=== PATIENT | female | born 1945 | race Caucasian/White ===

== ENCOUNTER 2016-10-31 10:02 | Emergency (ER) | payer MEDICARE ==
[2016-10-31 10:11] VITALS: BP 117/68
[2016-10-31] MEDS ORDERED: Ondansetron ODT TAB* 4 MG PO ONE (10:24)
--- NOTE | 2016-10-31 10:39 | UC ---
Gagan Jones Angela, scribed for Jose David Don MD on 10/31/16 at 1027 . Complaint Female HPI - HPI Summary HPI Summary: This pt is a 71 y/o female presenting to [facility] c/o dysuria and urinary frequency since yesterday morning. Last night and today she reports hematuria. Pt endorses fatigue, nausea, right flank pain and bladder/lower abd pain. She reports normal PO intake. Pt denies fever, chills, diarrhea, vomiting. She notes a PMHx: ovarian CA (in 2014) which makes urinating difficult at baseline due to removal of half her bladder. Pt states these symptoms are worse than baseline. She reports getting frequent UTIs prior to her dx of ovarian CA. Pt is currently on Xarelto (for atrial fibrillation) and Ventolin. - History Of Current Complaint Chief Complaint: UCGU Stated Complaint: UTI COMPLAINT Time Seen by Provider: 10/31/16 10:12 Hx Obtained From: Patient Onset/Duration: Lasting Days Timing: Constant Associated Signs And Symptoms: Positive: Back Pain - mild right-sided. Negative : Fever, Nausea, Vomiting(# Of Episodes =) - Allergies/Home Medications Allergies/Adverse Reactions: Allergies Allergy/AdvReac Type Severity Reaction Status Date / Time Cefaclor [From Ceclor] Allergy Hives Verified 09/12/15 11:49 Celecoxib [From Celebrex] Allergy Hives Verified 09/12/15 11:49 Fluticasone Allergy Bleeding Verified 09/12/15 11:49 BECLOMETHASONE Allergy Intermediate Pain Uncoded 09/12/15 11:50 TAXOL Allergy Intermediate Shakes Uncoded 09/12/15 11:51 Home Medications: Home Medications Albuterol HFA INHALER* [Ventolin HFA Inhaler*] 10/31/16 [History] Carvedilol TAB* [Coreg TAB*] 1 tab PO BID 10/31/16 [History Confirmed 10/31/16] Fluticasone Furoate (Inhalatio [Arnuity Ellipta] 200 mcg 10/31/16 [History] PMH/Surg Hx/FS Hx/Imm Hx Cardiovascular History: Hypertension, Atrial Fibrillation Respiratory History: Asthma Other Cancer History: Ovarian CA - Surgical History Surgical History: Yes Surgery Procedure, Year, and Place: partial hysterectomy,tonsilectomy, jordan, biopsy chest for sarcoidosis; bladder. 06/2014 [facility] REMOVED 2 OVARY-TUMORS ATTACHED TO OVARY-PART OF INTESTINE-PART OF BLADDER-PART OF LIVER-PART OF RIGHT KIDNEY-STOMACH LINING(DEBULKING); 2 CHEMO PORTS-THEN REMOVED; LEFT ELBOW REPAIR - Social History Alcohol Use: None Substance Use Type: None Smoking Status (MU): Never Smoked Tobacco - Immunization History Most Recent Influenza Vaccination: fall 2013 Most Recent Pneumonia Vaccination: due Review of Systems Constitutional: Other - POSITIVE: fatigue. NEGATIVE: fever, chills Skin: Negative Eyes: Negative Respiratory: Negative Gastrointestinal: Abdominal Pain - lower/bladder, Nausea, Other - NEGATIVE: diarrhea, vomiting Genitourinary: Dysuria, Hematuria, Frequency Psychological: Negative All Other Systems Reviewed And Are Negative: Yes Physical Exam Triage Information Reviewed: Yes Vital Signs: Initial Vital Signs Temp 97.9 F 10/31/16 10:08 Pulse 80 10/31/16 10:08 Resp 16 10/31/16 10:08 BP 117/68 10/31/16 10:08 Pulse Ox 96 10/31/16 10:08 Vital Signs Reviewed: Yes - Additional Comments General: well-appearing, no pain distress Skin: warm, color reflects adequate perfusion, dry Head: normal Eyes: EOMI, GUSTAVO ENT: normal Neck: supple, nontender Respiratory: CTA, breath sounds present Cardiovascular: RRR Abdomen: soft, nontender to palpation. Bowel: positive bowel sounds Musculoskeletal: normal, strength/ROM intact.Nontender to flank percussion. Neurological: normal, sensory/motor intact, A&O x3 Psychological: affect/mood appropriate Complaint Female Dx - Course Course Of Treatment: This pt is a 71 y/o female presenting to [facility] c/o dysuria and urinary frequency since yesterday morning. Last night and today she reports hematuria. Pt endorses fatigue, nausea, right flank pain and bladder/lower abd pain. She reports normal PO intake. Pt denies fever, chills, diarrhea, vomiting. She notes a PMHx: ovarian CA (in 2014) which makes urinating difficult at baseline due to removal of half her bladder. Pt states these symptoms are worse than baseline. She reports getting frequent UTIs prior to her dx of ovarian CA. Pt is currently on Xarelto (for atrial fibrillation) and Ventolin. Medications were reviewed. MEDICATIONS REVIEWED - Differential Dx/Diagnosis Provider Diagnoses: UTI Discharge - Discharge Plan Condition: Stable Disposition: HOME Prescriptions: Phenazopyridine 200 mg (NF) [Pyridium 200 MG tab *] 200 mg PO TID PRN #10 tab PRN Reason: Pain Sulfamethox/Trimethoprim DS* [Bactrim DS 800/160 TAB*] 1 tab PO BID #20 tab Patient Education Materials: Urinary Tract Infection in Women (ED) Referrals: Shannon White MD [Primary Care Provider] - Additional Instructions: FOLLOW UP WITH YOUR DOCTOR. GET RECHECKED FOR ANY WORSENING OF YOUR CONDITION; PAIN, FEVER, YOU FEEL ILL OR QUESTIONS OR CONCERNS. The documentation as recorded by the Gagan vaughan Angela accurately reflects the service I personally performed and the decisions made by me, Jose David Don MD.
== END 2016-10-31 10:49 | disposition home or self-care (01) ==
LOC: UCEAST 10:02
DX: N39.0 Urinary tract infection, site not specified (principal); J45.909 Unspecified asthma, uncomplicated; I48.91 Unspecified atrial fibrillation; Z79.01 Long term (current) use of anticoagulants; Z85.43 Personal history of malignant neoplasm of ovary
CPT/HCPCS: 81003; 87077; 87086; 87186; 99212; A9270-GY; G0463

== ENCOUNTER 2016-11-26 11:18 | Emergency (ER) | payer MEDICARE, OTHER ==
[2016-11-26 12:19] VITALS: BP 131/60
--- NOTE | 2016-11-26 12:31 | UC ---
Complaint Female HPI - HPI Summary HPI Summary: pain and buring, urgency, frequency with urination for 2 days, recently on Bactrim for UTI, did not finish entire dose due to hives - History Of Current Complaint Chief Complaint: UCGU Stated Complaint: URINARY COMPLAINT Time Seen by Provider: 11/26/16 12:19 Hx Obtained From: Patient ?: No Onset/Duration: Sudden Onset, Lasting Days - 2, Still Present Timing: Constant Severity Initially: Moderate Severity Currently: Moderate Character: Burning Aggravating Factor(s): Urination Alleviating Factor(s): Nothing Associated Signs And Symptoms: Negative: Fever, Back Pain, Nausea - Allergies/Home Medications Allergies/Adverse Reactions: Allergies Allergy/AdvReac Type Severity Reaction Status Date / Time Sulfamethoxazole Allergy Severe Rash Verified 11/26/16 12:11 w/Trimethoprim [From Bactrim] Cefaclor [From Ceclor] Allergy Hives Verified 11/26/16 12:11 Celecoxib [From Celebrex] Allergy Hives Verified 11/26/16 12:11 Fluticasone Allergy Bleeding Verified 11/26/16 12:11 BECLOMETHASONE Allergy Intermediate Pain Uncoded 11/26/16 12:11 TAXOL Allergy Intermediate Shakes Uncoded 11/26/16 12:11 PMH/Surg Hx/FS Hx/Imm Hx Endocrine History: Hypothyroidism Cardiovascular History: Cardiac Disease, Hypertension Respiratory History: Asthma - Surgical History Surgical History: Yes Surgery Procedure, Year, and Place: partial hysterectomy,tonsilectomy, jordan, biopsy chest for sarcoidosis; bladder. 06/2014 [facility] REMOVED 2 OVARY-TUMORS ATTACHED TO OVARY-PART OF INTESTINE-PART OF BLADDER-PART OF LIVER-PART OF RIGHT KIDNEY-STOMACH LINING(DEBULKING); 2 CHEMO PORTS-THEN REMOVED; LEFT ELBOW REPAIR - Family History Known Family History: Positive: None - Social History Occupation: Retired Lives: With Family Alcohol Use: None Substance Use Type: None Smoking Status (MU): Never Smoked Tobacco - Immunization History Most Recent Influenza Vaccination: NONE 2017 Most Recent Pneumonia Vaccination: UNKNOWN Review of Systems Constitutional: Negative Skin: Negative Eyes: Negative ENT: Negative Respiratory: Negative Cardiovascular: Negative Gastrointestinal: Negative Genitourinary: Dysuria, Frequency, Urgency Motor: Negative Neurovascular: Negative Musculoskeletal: Negative Neurological: Negative Psychological: Negative Is Patient Immunocompromised?: No All Other Systems Reviewed And Are Negative: Yes Physical Exam Triage Information Reviewed: Yes Appearance: Well-Appearing, Well-Nourished, Pain Distress - mild Vital Signs: Initial Vital Signs Temp 97.1 F 11/26/16 12:12 Pulse 71 11/26/16 12:12 Resp 18 11/26/16 12:12 BP 131/60 11/26/16 12:12 Pulse Ox 96 11/26/16 12:12 Vital Signs Reviewed: Yes Eye Exam: Normal Eyes: Positive: Conjunctiva Clear ENT Exam: Normal ENT: Positive: Normal ENT inspection, Hearing grossly normal. Negative: Nasal congestion, Nasal drainage, Trismus, Muffled/hoarse voice Dental Exam: Normal Neck exam: Normal Neck: Positive: Supple, Nontender Respiratory Exam: Normal Respiratory: Positive: Chest non-tender, No respiratory distress, No accessory muscle use Cardiovascular Exam: Normal Cardiovascular: Positive: RRR, Pulses Normal, Brisk Capillary Refill Abdominal Exam: Normal Abdomen Description: Positive: Nontender, No Organomegaly, Soft. Negative: CVA Tenderness (R), CVA Tenderness (L) Bowel Sounds: Positive: Present Musculoskeletal Exam: Normal Musculoskeletal: Positive: Strength Intact, ROM Intact, No Edema Neurological Exam: Normal Neurological: Positive: Alert, Muscle Tone Normal Psychological Exam: Normal Skin Exam: Normal Diagnostics - Laboratory Diagnostic Studies Completed/Ordered: +3 blood, leukoesterace +nitrite, + protien Complaint Female Dx - Course Course Of Treatment: Culture urine, pyridium, cipro, follow with pcp - Differential Dx/Diagnosis Differential Diagnosis/HQI/PQRI: Renal Colic, Ureteral Stone, Urinary Tract Infection Provider Diagnoses: UTI Discharge - Discharge Plan Condition: Stable Disposition: HOME Prescriptions: Ciprofloxacin TAB* [Cipro 250 MG Tab*] 250 mg PO BID #6 tab Phenazopyridine TAB* [Pyridium 100 mg TAB*] 100 mg PO TID PRN #4 tab PRN Reason: urinary burning Patient Education Materials: Phenazopyridine (By mouth), Urinary Tract Infection in Women (ED) Referrals: Shannon White MD [Primary Care Provider] - 1 Week
[2016-11-26] MEDS ORDERED: Phenazopyridine TAB* 100 MG PO ONE (12:35)
== END 2016-11-26 12:55 | disposition home or self-care (01) ==
LOC: UCCORT 11:18
DX: N39.0 Urinary tract infection, site not specified (principal); B96.1 Klebsiella pneumoniae [K. pneumoniae] as the cause of diseases classified elsewhere; I10 Essential (primary) hypertension; J45.909 Unspecified asthma, uncomplicated; I25.10 Atherosclerotic heart disease of native coronary artery without angina pectoris; E03.9 Hypothyroidism, unspecified; Z88.2 Allergy status to sulfonamides
CPT/HCPCS: 81003; 87077; 87086; 87186; 99212; A9270-GY; G0463

== ENCOUNTER → 2017-02-24 07:15 | Day surgery (SDC) | payer MEDICARE ==
[~2017-02-24 07:15] MED LIST: Buffered Lidocaine 0.9% SYRIN* 5 ML/SYR SYRINGE INTRADERM ONE; Buffered Lidocaine 0.9% SYRIN* 5 ML/SYR SYRINGE ONE; Bupivacaine 0.25% SDV* 30 ML ONE; Clindamycin 900 MG IVPREMIX(* 900 MG/50 ML SDV IV ONE; Lidocaine 1% INJ* 10 MG/ML 30 ML SDV ONE; Lidocaine 1.5% EPI 1:200,000* 30 ML SDV ONE; Midazolam* 1 MG/ML 2 ML VIAL (2 MG) ONE; Propofol* 10 MG/ML 20 ML BTL IV PUSH ONE; fentaNYL* 50 MCG/ML 2 ML VIAL (100 MCG VIAL) ONE
--- NOTE | 2017-02-24 10:58 | RAD ---
HISTORY: Right-sided PowerPort placement COMPARISONS: January 02, 2017 VIEWS: 1: frontal portable view of the chest at 10:00 AM FINDINGS: LINES AND TUBES: A right-sided chest port is noted with the tip overlying the cavoatrial junction. CARDIOMEDIASTINAL SILHOUETTE: The cardiomediastinal silhouette is normal for portable technique. PLEURA: The costophrenic angles are sharp. No pleural abnormalities are noted. LUNG PARENCHYMA: There is minimal perihilar alveolar opacification of the right lung ABDOMEN: The upper abdomen is clear. There is no subphrenic gas. BONES AND SOFT TISSUES: No bone or soft tissue abnormalities are noted. IMPRESSION: LINES AND TUBES ABOVE. MINIMAL RIGHT PERIHILAR ATELECTASIS VERSUS CONSOLIDATION
--- NOTE | 2017-02-24 11:01 | RAD ---
INDICATION: R port placement COMPARISONS: None relevant TECHNIQUE: Fluoroscopy was provided for a vascular access procedure. Total fluoroscopy time is: 9.2 seconds FINDINGS: Spot images demonstrate a right-sided chest port from a subclavian approach. IMPRESSION: FLUOROSCOPY WAS PROVIDED FOR A VASCULAR ACCESS PROCEDURE CPT II Codes: 6045F
[2017-02-24 11:31] VITALS: BP 122/66
--- NOTE | 2017-02-25 00:17 | OP ---
CC: Dr. Miguel Angel Virgen; Dr. Shannon White; Dr. Stephie Gilmore OPERATIVE REPORT: DATE OF OPERATION: 02/24/17 DATE OF : 45 SURGEON: Miguel Angel Virgen MD TAX PROFESSIONAL: None. ANESTHESIOLOGIST: Fernando Thomson DO ANESTHESIA: LMAC anesthesia. PRE-OP DIAGNOSIS: Ovarian carcinoma. POST-OP DIAGNOSIS: Ovarian carcinoma. OPERATIVE PROCEDURE: Placement of right subclavian 8-Maltese PowerPort. DESCRIPTION OF PROCEDURE: The patient was supine on the operative table. After adequate intravenous sedation, compression stockings, Yandy Hugger warmer, and intravenous antibiotics, the right neck and chest region were prepped with antiseptic, draped in a sterile fashion. Local infiltrative anesthes ia was administered and approximately 3-cm right subclavian incision was created. Venipuncture was ca rried out. Guidewire was passed under fluoroscopic guidance. Catheter was passed through the peel-aw ay introducer and measured and cut to 22 cm, attached to the port, which was sutured in the pocket wi th 2-0 Prolene. The pocket was closed with 3-0 and 5-0 Vicryl followed by Steri-Strips. The port wa s accessed. There was good blood return. It was flushed with saline and heparinized solution and a Tegaderm was placed. She tolerated the procedure well, was discharged with instructions and will fol low up in the office as needed. She has chemotherapy tomorrow and understands how she has to protect the port until they can use the access at chemotherapy. [id number]/[facility] #: [id number]
== END | disposition home or self-care (01) ==
LOC: OR 07:15
PROVIDERS: ATTEND Surgery
DX: C56.2 Malignant neoplasm of left ovary (principal); I10 Essential (primary) hypertension; I48.0 Paroxysmal atrial fibrillation; Z79.01 Long term (current) use of anticoagulants; I71.2 Thoracic aortic aneurysm, without rupture; J45.909 Unspecified asthma, uncomplicated; R91.8 Other nonspecific abnormal finding of lung field; Z88.1 Allergy status to other antibiotic agents; Z88.6 Allergy status to analgesic agent; Z88.8 Allergy status to other drugs, medicaments and biological substances; I08.0 Rheumatic disorders of both mitral and aortic valves; D86.9 Sarcoidosis, unspecified; E11.9 Type 2 diabetes mellitus without complications
CPT/HCPCS: 71010; C1788; J1642; J2250; J2704; J3010

== ENCOUNTER 2017-06-03 10:13 | Day surgery (SDC) | payer MEDICARE ==
--- NOTE | 2017-05-31 23:27 | HP ---
CC: Dr. Stephie Gilmore * ADMITTING HISTORY AND PHYSICAL: DATE OF ADMISSION: 06/03/17 ADMITTING DIAGNOSES: 1. Advanced ovarian carcinoma. 2. Bilateral hydronephrosis. PLANNED PROCEDURE: Bilateral retrograde and bilateral ureteral stent change. SURGEON: Dr. Padilla. ADMITTING HISTORY AND PHYSICAL: Megan Ramos is a 71-year-old lady with advanced ovarian carcinoma, who had been evaluated in December of 2016 for severe bilateral hydronephrosis. At that time, she had undergone bilateral stent insertion with resolution of the hydronephrosis. She was noted at that time to have had a right ureteral reimplant and I was able to position an 8.5 Danish 26 cm silicone stent into the right ureter and an 8.5 Danish 28 cm silicone stent into the left ureter. PAST MEDICAL HISTORY: Significant for: 1. Advanced ovarian carcinoma. 2. Atrial fibrillation. 3. Hypothyroidism. MEDICATIONS: On admission: 1. Carvedilol 6.25 mg twice a day. 2. Cholecalciferol 2000 units daily. 3. K-Ani 20 mEq daily. 4. Levothyroxine 88 mcg daily. 5. Marinol 1 capsule 3 times a day. 6. Prednisone 10 mg daily. 7. Singulair 10 mg daily. 8. Xarelto 20 mg daily. ALLERGIES AND INTOLERANCES: BECLOMETHASONE, CECLOR, CELEBREX, TAXOL, SULFA, and TEGADERM. PHYSICAL EXAMINATION GENERAL: Reveals a pleasant elderly lady. VITAL SIGNS: Blood pressure is 120/80, pulse 76 per minute, oxygen saturation 98% on room air. LUNGS: Clear bilaterally. CARDIOVASCULAR: S1, S2. No murmurs. ABDOMEN: Soft with mild bilateral flank tenderness. IMPRESSION: A 71-year-old lady with advanced ovarian carcinoma causing bilateral hydronephrosis and also status post reimplant of the right ureter. PLAN/RECOMMENDATIONS: Bilateral retrogrades and bilateral ureteral stent change. [id number]/[facility] #: [id number] [facility]
[~2017-06-03 10:13] MED LIST changes: -Buffered Lidocaine 0.9% SYRIN* 5 ML/SYR SYRINGE ONE; -Bupivacaine 0.25% SDV* 30 ML ONE; -Clindamycin 900 MG IVPREMIX(* 900 MG/50 ML SDV IV ONE; +Dexamethasone IV* 4 MG/ML 1 ML (4 MG) IV SLOW PU ONE; +Famotidine IV* 10 MG/ML 2 ML (20 mg) IV ONE; +Gentamicin ADULT (*) 120 MG in NS 0.9% 100 ML* 100 ML IVPB ONE; -Lidocaine 1% INJ* 10 MG/ML 30 ML SDV ONE; -Lidocaine 1.5% EPI 1:200,000* 30 ML SDV ONE; -Midazolam* 1 MG/ML 2 ML VIAL (2 MG) ONE; -Propofol* 10 MG/ML 20 ML BTL IV PUSH ONE; -fentaNYL* 50 MCG/ML 2 ML VIAL (100 MCG VIAL) ONE
[2017-06-03] MEDS ORDERED: Famotidine IV* 10 MG/ML 2 ML (20 mg) ONE (11:26)
[2017-06-03] MEDS ORDERED: Levofloxacin 500 MG IVPREMIX(* 500 MG/100 ML BAG IVPB ONE (11:26)
[2017-06-03] MEDS ORDERED: Dexamethasone IV* 4 MG/ML 1 ML (4 MG) ONE (11:26)
[2017-06-03] MEDS ORDERED: Midazolam* 1 MG/ML 5 ML VIAL (5 MG) ONE (12:11)
[2017-06-03] MEDS ORDERED: Iohexol 180 (CONTRAST) 10 ML SDV IV ONE ×2 (12:25→13:06)
[2017-06-03] MEDS ORDERED: Ondansetron INJ* 2 MG/ML VIAL IV PRN (12:35)
[2017-06-03] MEDS ORDERED: fentaNYL* 50 MCG/ML 2 ML VIAL (100 MCG VIAL) IV PRN (12:35)
[2017-06-03] MEDS ORDERED: Naloxone* 0.4 MG/ML 1 ML VIAL IV PRN (12:35)
[2017-06-03] MEDS ORDERED: oxyCODONE/Acetamin 5/325 MG* TAB PO PRN (12:35)
[2017-06-03] MEDS ORDERED: DiMENhydriNATE IV* 50 MG/ML VIAL IV PUSH PRN (12:35)
[2017-06-03] MEDS ORDERED: Chloroprocaine 3%* 20 ML VIAL ONE (12:41)
[2017-06-03] MEDS ORDERED: fentaNYL* 50 MCG/ML 2 ML VIAL (100 MCG VIAL) ONE (12:41)
[2017-06-03] MEDS ORDERED: Propofol* 10 MG/ML 20 ML BTL IV PUSH ONE (12:57)
[2017-06-03] MEDS ORDERED: Ondansetron INJ* 2 MG/ML VIAL ONE (12:57)
--- NOTE | 2017-06-03 13:49 | RAD ---
INDICATION: Stent exchange COMPARISONS: CT dated May 10, 2014 TECHNIQUE: Fluoroscopy was provided for a retrograde pyelogram and stent placement. Total fluoroscopy time is: 7 seconds FINDINGS: Spot images demonstrate contrast within the renal collecting systems bilaterally with bilateral ureteral stents. IMPRESSION: FLUOROSCOPY WAS PROVIDED FOR A RETROGRADE PYELOGRAM AND STENT PLACEMENT CPT II Codes: 6045F
[2017-06-03 14:57] VITALS: BP 134/63
--- NOTE | 2017-06-04 14:06 | OP ---
CC: Dr. Shannon White; Stephie Gilmore MD * DATE OF OPERATION: 06/03/17 - [facility] DATE OF : 45 SURGEON: Armand Padilla MD ANESTHESIOLOGIST: Dr. Melton. ANESTHESIA: Spinal. PRE-OP DIAGNOSIS: Bilateral hydronephrosis. POST-OP DIAGNOSIS: Bilateral hydronephrosis. OPERATIVE PROCEDURE: Cystoscopy, bilateral retrograde and bilateral ureteral stent change. COMPLICATIONS: None. STENT USED: A 8.5-Mauritian 28-cm silicone stent, left ureter and 8.5-Mauritian 26- cm silicone stent, right ureter. POSTOPERATIVE CONDITION: Stable. INDICATIONS: Megan Ramos is a 71-year-old lady with advanced pelvic malignancy causing bilateral hydronephrosis. She has been managed with indwelling bilateral stents and is now being brought in for stent change. DESCRIPTION OF PROCEDURE: After induction of spinal anesthesia, the patient was placed in dorsal lithotomy position. Sequential compression devices were in place and functioning. Initial cystoscopy revealed the stent exiting from the left ureteral orifice and also from the re-implanted right-sided orifice. Both the stents were removed. Left retrograde pyelogram was performed, which revealed fullness of the left collecting system. A new 8.5-Mauritian 28 cm silicone stent was positioned under fluoroscopy in the left ureter. Next, attention was directed to the right side. The right ureter had been reimplanted and the reimplanted orifice was in the posterior wall high up on the right side. This was located and a retrograde pyelogram revealed fullness of the right collecting system. A 8.5-Mauritian 26 cm silicone stent was introduced into the right ureter and positioned under fluoroscopy with good proximal and distal positioning obtained. The bladder was emptied. The patient tolerated the procedure satisfactorily and was transferred back to the recovery area in stable condition. [id number]/[facility] #: [id number] [facility]
== END 2017-06-03 15:56 | disposition home or self-care (01) ==
LOC: OR 10:13
PROVIDERS: ATTEND Urology
DX: N13.1 Hydronephrosis with ureteral stricture, not elsewhere classified (principal); C56.9 Malignant neoplasm of unspecified ovary; I48.91 Unspecified atrial fibrillation; E03.9 Hypothyroidism, unspecified; Z79.01 Long term (current) use of anticoagulants
CPT/HCPCS: 74420; C1876; J1100; J1580; J1956; J2250; J2400; J2405; J2704; J3010

== ENCOUNTER 2017-06-30 01:48 | Emergency (ER) | payer MEDICARE ==
[2017-06-30] MEDS ORDERED: Ondansetron INJ* 2 MG/ML VIAL IV ONE (03:08)
[2017-06-30] MEDS ORDERED: NS 0.9% 1000 ML* 1,000 ML IV ONE (03:08)
[2017-06-30] MEDS ORDERED: HYDROmorphone INJ* 2 MG/ML CARPUJECT SYRINGE IV SLOW PU ONE (03:08)
[2017-06-30 03:37] LABS: Hematocrit 25 % (35-47); Hemoglobin 8.3 g/dl (12.0-16.0); Mean Corpuscular HGB Conc 34 g/dl (31-36); Mean Corpuscular Hemoglobin 35 pg (27-31); Mean Corpuscular Volume 103 fL (80-97); Mean Platelet Volume 7.4 um3 (7.4-10.4); Platelet Count 146 10^3/ul (150-450); Red Blood Count 2.41 10^6/ul (4.0-5.4); Red Cell Distribution Width 21 % (10.5-15); White Blood Count 1.7 10^3/ul (3.5-10.8)
[2017-06-30 03:45] LABS: INR 1.65 (0.77-1.02); Urine Appearance Cloudy; Urine Blood 2+ (Negative); Urine Color Yellow; Urine Ketones Negative (Negative); Urine Protein 2+(100 mg/dL) (Negative); Urine Specific Gravity 1.009 (1.010-1.030); Urine Urobilinogen Negative (Negative)
[2017-06-30 03:55] LABS: EGFR Non-African American 60.9 (>60)
[2017-06-30] MEDS ORDERED: DOXYcycline IV* 100 MG in NS 0.9% 250 ML* 250 ML IVPB ONE (04:10)
[2017-06-30 04:31] LABS: ABS Basophils 0 10^3/ul (0-0.2); ABS Eosinophils 0 10^3/ul (0-0.6); ABS Lymphocytes 0.7 10^3/ul (1.0-4.8); ABS Monocytes 0.6 10^3/ul (0-0.8); ABS Neutrophils 0.4 10^3/ul (1.5-7.7); ABS Nucleated RBC 0 10^3/ul; Eosinophil % 1.3 % (0-6); Lymphocyte % 41.2 % (25-47); Nucleated Red Blood Cells % 0.5
--- NOTE | 2017-06-30 06:39 | ED ---
Wilder Jones Gabriel, scribed for Estevan Perez MD on 06/30/17 at 0303 . GI/ HPI - HPI Summary HPI Summary: This patient is a 71 year old F presenting to [facility] with a chief complaint of right flank pain since 1200 tonight. The patient rates the pain 10/10 in severity. Patient reports dysuria and nausea. Pt denies fever, CP, SOB, and trouble breathing. Pt has stents in her kidney to allow them to drain properly. They were not due to scar tissue s/p cancer surgery. She has stage 4 ovarian cancer. - History of Current Complaint Chief Complaint: EDFlankPain Time Seen by Provider: 06/30/17 02:53 Stated Complaint: FLANK PAIN Hx Obtained From: Patient Onset/Duration: Started Hours Ago, Still Present Timing: Constant Severity: Moderate Current Severity: Moderate Pain Intensity: 10 Location of Pain: Flank Associated Signs and Symptoms: Positive: Other: - dysuria - Additional Pertinent History Primary Care Physician: KAM - Allergy/Home Medications Allergies/Adverse Reactions: Allergies Allergy/AdvReac Type Severity Reaction Status Date / Time Adhesive Tape Allergy Intermediate Rash Verified 06/30/17 01:51 [Tegaderm Dressing] cefaclor Allergy Intermediate Hives Verified 06/30/17 01:51 celecoxib Allergy Intermediate Hives Verified 06/30/17 01:51 sulfamethoxazole Allergy Intermediate Rash Verified 06/30/17 01:51 [From Bactrim] trimethoprim [From Bactrim] Allergy Intermediate Rash Verified 06/30/17 01:51 beclomethasone AdvReac Severe Difficulty Verified 06/30/17 01:51 Swallowing paclitaxel AdvReac Shakes Verified 06/30/17 01:51 TAXOL AdvReac Mild Shakes Uncoded 06/30/17 01:51 PMH/Surg Hx/FS Hx/Imm Hx Endocrine/Hematology History: Reports: Hx Thyroid Disease Denies: Hx Diabetes, Hx Systemic Lupus Erythematosus Cardiovascular History: Reports: Hx Angina, Hx Hypertension, 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, Other Cardiovascular Problems/Disorders - a- fib, aneurysm thoracic aorta Denies: Hx Congestive Heart Failure, Hx Pacemaker/ICD Respiratory History: Reports: Hx Asthma, Hx Pulmonary Embolism - 2004, Other Respiratory Problems/Disorders - reports in remission - sarcoidosis GI History: Reports: Other GI Disorders - part of liver removed 2014 Denies: Hx Gall Bladder Disease - gallbladder removed, Hx Ulcer History: Reports: Hx Renal Disease, Other Problems/Disorders - scar tissue from surgery, has stents currently, freq UTI's Denies: Hx Dialysis Musculoskeletal History: Reports: Hx Arthritis - osteoarthritis, Hx Osteoporosis , Other Musculoskeletal History - osteoarthritis Denies: Hx Rheumatoid Arthritis Sensory History: Reports: Hx Cataracts - both, Hx Contacts or Glasses - glasses Denies: Hx Hearing Aid Opthamlomology History: Reports: Hx Cataracts - both, Hx Contacts or Glasses - glasses Psychiatric History: Reports: Hx Anxiety - prn med Denies: Hx Panic Disorder - Cancer History Cancer Type, Location and Year: OVARIAN CA Hx Chemotherapy: Yes - 2014 Hx Radiation Therapy: No - Surgical History Surgery Procedure, Year, and Place: partial hysterectomy,tonsilectomy, cholecystectomy, biopsy chest for sarcoidosis; bladder suspension. 06/2014 [facility] REMOVED 2 OVARY-TUMORS ATTACHED TO OVARY-PART OF INTESTINE-PART OF BLADDER-PART OF LIVER-PART OF RIGHT KIDNEY-STOMACH LINING(DEBULKING); 2 CHEMO PORTS-THEN REMOVED; LEFT ELBOW REPAIR, PLANTAR FASCIOTOMY, APPENDECTOMY Hx Anesthesia Reactions: No - Immunization History Date of Tetanus Vaccine: unk Date of Influenza Vaccine: 2015 Infectious Disease History: No Infectious Disease History: Denies: Hx Human Immunodeficiency Virus (HIV), History Other Infectious Disease, Traveled Outside the [place] in Last 30 Days - Family History Known Family History: Negative: Respiratory Disease, Seizure Disorder - Social History Alcohol Use: None Substance Use Type: Reports: None Smoking Status (MU): Never Smoked Tobacco Review of Systems Negative: Fever Negative: Chest Pain Respiratory: Negative - trouble breathing Negative: Shortness Of Breath Positive: dysuria, flank pain. Negative: frequency All Other Systems Reviewed And Are Negative: Yes Physical Exam - Summary Physical Exam Summary: Appearance: Well appearing, no pain distress Skin: warm, dry, reflects adequate perfusion, alopecia related to chemo Head/face: normal Eyes: EOMI, GUSTAVO ENT: normal Neck: supple, non-tender Respiratory: CTA, breath sounds present Cardiovascular: RRR, pulses symmetrical Abdomen: no RLQ pain or pain over bladder. ABD is non tender to palpation Bowel Sounds: high pitched Musculoskeletal: normal, strength/ROM intact Neuro: normal, sensory motor intact, A&Ox3 Triage Information Reviewed: Yes Vital Signs On Initial Exam: Initial Vitals Temp Pulse Resp BP Pulse Ox 98.6 F 106 20 116/86 94 06/30/17 01:49 06/30/17 01:49 06/30/17 01:49 06/30/17 01:49 06/30/17 01:49 Vital Signs Reviewed: Yes Diagnostics - Vital Signs Vital Signs Temp Pulse Resp BP Pulse Ox 06/30/17 01:49 98.6 F 106 20 116/86 94 - Laboratory Lab Results: Lab Results 06/30/17 06/30/17 06/30/17 Range/Units 03:26 03:26 03:26 WBC 1.7 L (3.5-10.8) 10^3/ul RBC 2.41 L (4.0-5.4) 10^6/ul Hgb 8.3 L (12.0-16.0) g/dl Hct 25 L (35-47) % MCV 103 H (80-97) fL MCH 35 H (27-31) pg MCHC 34 (31-36) g/dl RDW 21 H (10.5-15) % Plt Count 146 L (150-450) 10^3/ul MPV 7.4 (7.4-10.4) um3 Neut % (Auto) 22.3 L (38-83) % Lymph % (Auto) 41.2 (25-47) % Dillon % (Auto) 34.3 H (0-7) % Eos % (Auto) 1.3 (0-6) % Baso % (Auto) 0.9 (0-2) % Absolute Neuts (auto) 0.4 L* (1.5-7.7) 10^3/ul Absolute Lymphs (auto) 0.7 L (1.0-4.8) 10^3/ul Absolute Monos (auto) 0.6 (0-0.8) 10^3/ul Absolute Eos (auto) 0 (0-0.6) 10^3/ul Absolute Basos (auto) 0 (0-0.2) 10^3/ul Absolute Nucleated RBC 0 10^3/ul Nucleated RBC % 0.5 INR (Anticoag Therapy) 1.65 H (0.77-1.02) APTT 53.0 H (26.0-36.3) seconds Sodium 139 (139-145) mmol/L Potassium 3.8 (3.5-5.0) mmol/L Chloride 104 (101-111) mmol/L Carbon Dioxide 25 (22-32) mmol/L Anion Gap 10 (2-11) mmol/L BUN 11 (6-24) mg/dL Creatinine 0.91 (0.51-0.95) mg/dL Est GFR ( Amer) 78.4 (>60) Est GFR (Non-Af Amer) 60.9 (>60) BUN/Creatinine Ratio 12.1 (8-20) Glucose 103 H (70-100) mg/dL Lactic Acid (0.5-2.0) mmol/L Calcium 9.3 (8.6-10.3) mg/dL Total Bilirubin 0.60 (0.2-1.0) mg/dL AST 13 (13-39) U/L ALT 6 L (7-52) U/L Alkaline Phosphatase 46 (34-104) U/L Troponin I 0.00 (<0.04) ng/mL C-Reactive Protein 49.45 H (< 5.00) mg/L Total Protein 6.7 (6.4-8.9) g/dL Albumin 3.7 (3.2-5.2) g/dL Globulin 3.0 (2-4) g/dL Albumin/Globulin Ratio 1.2 (1-3) Urine Color Urine Appearance Urine pH (5-9) Ur Specific [place] (1.010-1.030) Urine Protein (Negative) Urine Ketones (Negative) Urine Blood (Negative) Urine Nitrate (Negative) Urine Bilirubin (Negative) Urine Urobilinogen (Negative) Ur Leukocyte Esterase (Negative) Urine WBC (Auto) (Absent) Urine RBC (Auto) (Absent) Ur Squamous Epith Cells (Absent) Urine Bacteria (Absent) Urine Glucose (Negative) Blood Type Antibody Screen 06/30/17 06/30/17 06/30/17 Range/Units 03:26 03:26 03:26 WBC (3.5-10.8) 10^3/ul RBC (4.0-5.4) 10^6/ul Hgb (12.0-16.0) g/dl Hct (35-47) % MCV (80-97) fL MCH (27-31) pg MCHC (31-36) g/dl RDW (10.5-15) % Plt Count (150-450) 10^3/ul MPV (7.4-10.4) um3 Neut % (Auto) (38-83) % Lymph % (Auto) (25-47) % Dillon % (Auto) (0-7) % Eos % (Auto) (0-6) % Baso % (Auto) (0-2) % Absolute Neuts (auto) (1.5-7.7) 10^3/ul Absolute Lymphs (auto) (1.0-4.8) 10^3/ul Absolute Monos (auto) (0-0.8) 10^3/ul Absolute Eos (auto) (0-0.6) 10^3/ul Absolute Basos (auto) (0-0.2) 10^3/ul Absolute Nucleated RBC 10^3/ul Nucleated RBC % INR (Anticoag Therapy) (0.77-1.02) APTT (26.0-36.3) seconds Sodium (139-145) mmol/L Potassium (3.5-5.0) mmol/L Chloride (101-111) mmol/L Carbon Dioxide (22-32) mmol/L Anion Gap (2-11) mmol/L BUN (6-24) mg/dL Creatinine (0.51-0.95) mg/dL Est GFR ( Amer) (>60) Est GFR (Non-Af Amer) (>60) BUN/Creatinine Ratio (8-20) Glucose (70-100) mg/dL Lactic Acid 0.7 (0.5-2.0) mmol/L Calcium (8.6-10.3) mg/dL Total Bilirubin (0.2-1.0) mg/dL AST (13-39) U/L ALT (7-52) U/L Alkaline Phosphatase (34-104) U/L Troponin I (<0.04) ng/mL C-Reactive Protein (< 5.00) mg/L Total Protein (6.4-8.9) g/dL Albumin (3.2-5.2) g/dL Globulin (2-4) g/dL Albumin/Globulin Ratio (1-3) Urine Color Yellow Urine Appearance Cloudy Urine pH 6.0 (5-9) Ur Specific [place] 1.009 L (1.010-1.030) Urine Protein 2+(100 mg/dl) A (Negative) Urine Ketones Negative (Negative) Urine Blood 2+ A (Negative) Urine Nitrate Positive A (Negative) Urine Bilirubin Negative (Negative) Urine Urobilinogen Negative (Negative) Ur Leukocyte Esterase 3+ A (Negative) Urine WBC (Auto) 3+(>20/hpf) A (Absent) Urine RBC (Auto) 3+(>10/hpf) A (Absent) Ur Squamous Epith Cells Present A (Absent) Urine Bacteria 1+ A (Absent) Urine Glucose Negative (Negative) Blood Type O Positive Antibody Screen Negative Result Diagrams: 06/30/17 03:26 06/30/17 03:26 Lab Statement: Any lab studies that have been ordered have been reviewed, and results considered in the medical decision making process. - Radiology CXR Radiology Interpretation Completed By: ED Physician - port in right chest, no definite infiltrate - EKG 0325 Cardiac Rate: NL EKG Rhythm: Sinus Rhythm - at [address] Segment: Non-Specific EKG Interpretation: LAD Re-Evaluation - Re-Evaluation First Eval Change: Improved GIGU Course/Dx - Course Course Of Treatment: Patient with stage IV metastatic ovarian cancer with stents in both kidneys presents with urinary symptoms and right-sided flank pain. There is no hydronephrosis on CT. She has evidence for urinary tract infection. Gave IV doxycycline given her multiple allergies and blood thinners. Hydrated and treated for discomfort. Discussed with the hospitalist who will admit. - Diagnoses Differential Diagnoses - Female: Urinary Tract Infection, Other - Obstructive uropathy, erosive metastatic disease Provider Diagnoses: Pancytopenia, UTI (urinary tract infection), Right flank pain, Carcinoma of ovary, stage 4, Neutropenia - Physician Notifications Discussed Care Of Patient With: Abel Vargas Time Discussed With Above Provider: 04:26 Instructed by Provider To: Admit As Inpatient Discharge - Sign-Out/Discharge Documenting (check all that apply): Discharge/Admit/Transfer - admitted - Discharge Plan Condition: Fair Disposition: ADMITTED TO [facility] Referrals: Shannon White MD [Primary Care Provider] - - Billing Disposition and Condition Condition: FAIR Disposition: [facility] The documentation as recorded by the Wilder vaughan Gabriel accurately reflects the service I personally performed and the decisions made by Chris zambrano Kirk, MD.
[2017-06-30] MEDS ORDERED: Phytonadione Oral Solution* 5 MG/25 ML UDC PO ONE (07:16)
[2017-06-30 08:08] VITALS: BP 133/79
--- NOTE | 2017-06-30 08:42 | RAD ---
HISTORY: Right flank pain COMPARISONS: March 18, 2017 VIEWS: 1: frontal portable view of the chest at 3:50 AM FINDINGS: LINES AND TUBES: A right-sided chest port is noted from subclavian approach with the tip overlying the superior vena cava. CARDIOMEDIASTINAL SILHOUETTE: The cardiomediastinal silhouette is normal for portable technique. PLEURA: The costophrenic angles are sharp. No pleural abnormalities are noted. LUNG PARENCHYMA: The lungs are clear. ABDOMEN: The upper abdomen is clear. There is no subphrenic gas. BONES AND SOFT TISSUES: No bone or soft tissue abnormalities are noted. IMPRESSION: LINES AND TUBES ABOVE. NO ACTIVE CARDIOPULMONARY DISEASE.
--- NOTE | 2017-06-30 08:50 | RAD ---
INDICATION: RIGHT flank pain. Stage IV ovarian carcinoma. Renal stents. COMPARISON: June 28, 2017 CT and May 10, 2017 CT. TECHNIQUE: Multidetector CT images were obtained from the lung bases to the ischial tuberosities. Evaluation of the viscera is limited without IV contrast. Multiplanar reformation. REPORT: Moderate basilar RIGHT lower lobe consolidation may represent atelectasis, inflammatory infiltrate, or potentially tumor given the context. Negative for pleural effusions. Coronary artery calcifications. Physiologic small volume of pericardial fluid. Post cholecystectomy. No focal hepatic lesions evident. Negative for biliary dilatation. Mildly atrophic pancreas. Unremarkable spleen. Enteric contrast at the colon from the CT of one day prior. No suspicious CT finding of the alimentary tract. Negative for ascites, free air, hernias. Normal adrenal glands. Bilateral ureteral stents in place. Negative for hydronephrosis. Post hysterectomy. Unremarkable adnexal regions. LEFT periaortic lymph nodes at level of the renal arteries measuring up to 0.5 cm short axis within normal limits. 0.7 cm short axis portal caval lymph node within normal limits. Small calcified esophagogastric junction lymph nodes. Negative for lymphadenopathy. No mesenteric or omental implants evident. Normal diameter abdominal aorta with mild calcific plaque. Partially decompressed IVC favoring lower volume state. Negative for suspicious osseous lesions. Unchanged finding of grade 2 L4-L5 degenerative anterolisthesis. IMPRESSION: 1. Unchanged basilar RIGHT lower lobe consolidation compared with May 10, 2017 CT which may represent atelectasis, inflammatory infiltrate, or potentially tumor given the clinical context. 2. Bilateral ureteral stents in place. Negative for hydronephrosis. 3. Negative for lymphadenopathy or visualized metastatic implants at the peritoneum. 4. No etiology for acute RIGHT flank pain evident.
== END 2017-06-30 08:07 | disposition home or self-care (01) ==
LOC: ED 01:48
DX: D61.818 Other pancytopenia (principal); N39.0 Urinary tract infection, site not specified; R30.0 Dysuria; R10.84 Generalized abdominal pain; C56.9 Malignant neoplasm of unspecified ovary; M79.2 Neuralgia and neuritis, unspecified
CPT/HCPCS: 36415; 71045; 74176; 80053; 81003; 81015; 83605; 84484; 85025; 85610; 85730; 86140; 86850; 86900; 86901; 87040; 87086; 93005; 96365; 96366; 96375; 99283; J1170; J2405

== ENCOUNTER 2017-08-02 07:56 | Day surgery (SDC) | payer MEDICARE ==
[~2017-08-02 07:56] MED LIST changes: +Acetaminophen TAB* 325 MG PO PRN; -Dexamethasone IV* 4 MG/ML 1 ML (4 MG) IV SLOW PU ONE; -Famotidine IV* 10 MG/ML 2 ML (20 mg) IV ONE; -Gentamicin ADULT (*) 120 MG in NS 0.9% 100 ML* 100 ML IVPB ONE
[2017-08-02] MEDS ORDERED: fentaNYL* 50 MCG/ML 2 ML VIAL (100 MCG VIAL) ONE (09:37)
[2017-08-02] MEDS ORDERED: Midazolam* 1 MG/ML 2 ML VIAL (2 MG) ONE (09:37)
[2017-08-02] MEDS ORDERED: Propofol* 10 MG/ML 20 ML BTL IV PUSH ONE (10:08)
[2017-08-02] MEDS ORDERED: Ondansetron INJ* 2 MG/ML VIAL ONE (10:27)
[2017-08-02 10:43] VITALS: BP 105/60
[2017-08-02] MEDS ORDERED: Phenylephrine 2.5% OPTH.SOL* 2 ML BTL ONE (11:29)
[2017-08-02] MEDS ORDERED: Cyclopentolate 1% OPTH.SOL* 2 ML BTL ONE (11:29)
[2017-08-02] MEDS ORDERED: Neomycin/Polymy/Dex OPHTH.OIN* 3.5 GM ONE (11:29)
[2017-08-02] MEDS ORDERED: Tetracaine 0.5% OPTH.SOL 4 ML* 1 DROP BTL ONE (11:29)
[2017-08-02] MEDS ORDERED: Ketorolac 0.5% OPHTH (NF) 0.5 % 5 ML BTL ONE (11:29)
[2017-08-02] MEDS ORDERED: Tropicamide 1% OPTH.SOL* BTL ONE (11:29)
[2017-08-02] MEDS ORDERED: Lidocaine 1%* 5 ML VIAL ONE (11:29)
--- NOTE | 2017-08-03 07:34 | OP ---
DATE OF OPERATION: 08/02/17 [facility] DATE OF : 45 SURGEON: Dr. Damian Park. DIVIDEND DEPOSIT ENTRY CLERK: None. ANESTHESIA: Topical with intravenous sedation. PRE-OP DIAGNOSIS: Cataract, right eye. POST-OP DIAGNOSIS: Cataract, right eye. OPERATIVE PROCEDURE: Phacoemulsification and cataract extraction with posterior chamber intraocular lens implant, right eye. COMPLICATIONS: None. BLOOD LOSS: None. DESCRIPTION OF PROCEDURE: The patient was brought to the operating room and received a small amount of intra-venous sedation. A drop of Tetracaine was placed in her right eye. She was prepped and draped in the usual sterile fashion for ophthalmic surgery and attention was directed to the right eye where a speculum was placed. A paracentesis was created at the 11 o'clock position and 0.1 cc of 1 percent preservative-free Lidocaine was injected into the anterior chamber followed by DisCoVisc. The eye was digitally stabilized while a 2.75 mm keratome was used to create a triplanar clear corneal incision at the 9 o'clock position. A continuous curvilinear capsulorrhexis was created with a cystotome and Utrata forceps. BSS on a cannula was used to hydrodissect the lens from the capsule. Phacoemulsification was performed in a divide-and- conquer technique to create four fragments which were removed. Residual cortical material was removed with irrigation and aspiration. DisCoVisc was used to inflate the capsular bag and an AU00T0 24.5 Diopter lens was folded and inserted into the capsular bag. DisCoVisc was removed using irrigation and aspiration. BSS on a cannula was used to hydrate the corneal stroma and seal the wound. At the end of the case the pupil was round and the lens was centered. The eye was of normal pressure and the wound was water tight. The speculum was removed and topical Maxitrol ointment was placed on the surface of the eye. The eye was closed, patched and shielded and the patient was sent to the recovery room in stable condition with post operative instructions and follow-up appointment given. [id number]/CPS #: [id number] HANK
== END 2017-08-02 10:55 | disposition home or self-care (01) ==
LOC: OREAST 07:56
PROVIDERS: ATTEND Ophthalmology
DX: H25.041 Posterior subcapsular polar age-related cataract, right eye (principal); I48.91 Unspecified atrial fibrillation; Z79.01 Long term (current) use of anticoagulants; Z85.43 Personal history of malignant neoplasm of ovary; E03.9 Hypothyroidism, unspecified; J45.909 Unspecified asthma, uncomplicated; I25.10 Atherosclerotic heart disease of native coronary artery without angina pectoris; I08.0 Rheumatic disorders of both mitral and aortic valves
CPT/HCPCS: A9270-GY; J2250; J2405; J2704; J3010; V2632

== ENCOUNTER 2017-08-09 08:37 | Day surgery (SDC) | payer MEDICARE ==
[2017-08-09] MEDS ORDERED: Midazolam* 1 MG/ML 2 ML VIAL (2 MG) ONE ×2 (09:52→09:55)
[2017-08-09 10:33] VITALS: BP 113/60
[2017-08-09] MEDS ORDERED: Tetracaine 0.5% OPTH.SOL 4 ML* 1 DROP BTL ONE (13:04)
[2017-08-09] MEDS ORDERED: Neomycin/Polymy/Dex OPHTH.OIN* 3.5 GM ONE (13:04)
[2017-08-09] MEDS ORDERED: Lidocaine 1%* 5 ML VIAL ONE (13:04)
[2017-08-09] MEDS ORDERED: Phenylephrine 2.5% OPTH.SOL* 2 ML BTL ONE (13:04)
[2017-08-09] MEDS ORDERED: Cyclopentolate 1% OPTH.SOL* 2 ML BTL ONE (13:04)
[2017-08-09] MEDS ORDERED: Tropicamide 1% OPTH.SOL* BTL ONE (13:04)
[2017-08-09] MEDS ORDERED: Ketorolac 0.5% OPHTH (NF) 0.5 % 5 ML BTL ONE (13:04)
--- NOTE | 2017-08-09 16:33 | OP ---
DATE OF OPERATION: 08/09/17 [facility] DATE OF : 45 SURGEON: Dr. Damian Park. CORRECTIONS CORPORAL: None. ANESTHESIA: Topical with intravenous sedation. PRE-OP DIAGNOSIS: Cataract, left eye. POST-OP DIAGNOSIS: Cataract, left eye. OPERATIVE PROCEDURE: Phacoemulsification and cataract extraction with posterior chamber intraocular lens implant, left eye. COMPLICATIONS: None. BLOOD LOSS: None. DESCRIPTION OF PROCEDURE: The patient was brought to the operating room and received a small amount of intravenous sedation. A drop of Tetracaine was placed in her left eye. She was prepped and draped in the usual sterile fashion for ophthalmic surgery and attention was directed to the left eye where a speculum was placed. A paracentesis was created at the 5 o'clock position and 0.1 cc of 1 percent preservative-free Lidocaine was injected into the anterior chamber followed by DisCoVisc. The eye was digitally stabilized while a 2.75 mm keratome was used to create a triplanar clear corneal incision at the 3 o'clock position. A continuous curvilinear capsulorrhexis was created with a cystotome and Utrata forceps. BSS on a cannula was used to hydrodissect the lens from the capsule. Phacoemulsification was performed in a divide-and- conquer technique to create four fragments which were removed. Residual cortical material was removed with irrigation and aspiration. DisCoVisc was used to inflate the capsular bag and an AU00T0 23.0 diopter lens was folded and inserted into the capsular bag. DisCoVisc was removed using irrigation and aspiration. BSS on a cannula was used to hydrate the corneal stroma and seal the wound. At the end of the case the pupil was round and the lens was centered. The eye was of normal pressure and the wound was water tight. The speculum was removed and topical Maxitrol ointment was placed on the surface of the eye. The eye was closed, patched and shielded and the patient was sent to the recovery room in stable condition with post operative instructions and follow-up appointment given. [id number]/CPS #: [id number] HANK
== END 2017-08-09 10:38 | disposition home or self-care (01) ==
LOC: OREAST 08:37
PROVIDERS: ATTEND Ophthalmology
DX: H25.042 Posterior subcapsular polar age-related cataract, left eye (principal); I48.2 Chronic atrial fibrillation; Z79.01 Long term (current) use of anticoagulants; I10 Essential (primary) hypertension; E03.9 Hypothyroidism, unspecified; C56.9 Malignant neoplasm of unspecified ovary; Z68.32 Body mass index [BMI] 32.0-32.9, adult
CPT/HCPCS: A9270-GY; J2250; V2632

== ENCOUNTER 2017-10-05 12:15 | Emergency (ER) | payer MEDICARE ==
--- NOTE | 2017-10-05 12:44 | ED ---
Psychiatric Complaint - HPI Summary HPI Summary: This is clement Breen documenting for attending Dr. Chris Mathis This patient is a 72 year old F presenting to [facility] with a chief complaint of depression since a few days ago. She notes weakness and shakiness due to anemia. Next Tuesday is the 4 year anniversary of husbands , which is the major stressor for her depression, along with her anemia and terminal ovarian CA. Pt notes she is scared of being unable to live independently, scared of pain , and scared of an ugly . Pt lives alone and independently currently. Pt takes lynparza for CA. Ovarian CA dx 06/2014. She underwent chemo for 8 months, was in remission, last December it came back.Pt notes she is on Lynparza to keep CA at bay for a while, curing of CA is not possible. PMHx stents. Pt denies hematochezia. - History Of Current Complaint Chief Complaint: EDMentalHealth Time Seen by Provider: 10/05/17 12:33 Hx Obtained From: Patient Onset/Duration: Gradual Onset, Still Present Timing: Constant Severity Initially: Mild Severity Currently: Mild Character: Depressed, Fearful, Anxious Aggravating Factor(s): Recent Stress - 4 year anniversery of 's Alleviating Factor(s): Nothing Associated Signs And Symptoms: Positive: Social Withdrawal Has Suicidal: Reports: Thoughts Has Homicidal: Denies: Thoughts Recent Stressor(s): 4th anniversary of 's - Allergies/Home Medications Allergies/Adverse Reactions: Allergies Allergy/AdvReac Type Severity Reaction Status Date / Time Adhesive Tape Allergy Intermediate Rash Verified 10/05/17 12:26 [Tegaderm Dressing] cefaclor Allergy Intermediate Hives Verified 10/05/17 12:26 celecoxib Allergy Intermediate Hives Verified 10/05/17 12:26 sulfamethoxazole Allergy Intermediate Rash Verified 10/05/17 12:26 [From Bactrim] trimethoprim [From Bactrim] Allergy Intermediate Rash Verified 10/05/17 12:26 beclomethasone AdvReac Severe Difficulty Verified 10/05/17 12:26 Swallowing paclitaxel AdvReac Shakes Verified 10/05/17 12:26 TAXOL AdvReac Mild Shakes Uncoded 10/05/17 12:26 Home Medications: Home Medications Albuterol HFA INHALER* [Ventolin HFA Inhaler*] 2 puff INH Q4H PRN 10/05/17 [ History Confirmed 10/05/17] Cholecalciferol (Vitamin D3) [Vitamin D3] 2,000 unit PO DAILY 10/05/17 [History Confirmed 10/05/17] Docusate CAP* [Colace Cap*] 100 mg PO BID 10/05/17 [History Confirmed 10/05/17] Gabapentin CAP(*) [Neurontin 100 mg CAP(*)] 100 mg PO TID PRN 10/05/17 [History Confirmed 10/05/17] HYDROcodone/ACETAMIN 5-325 MG* [Wilder 5-325 TAB*] 1 tab PO QID PRN 10/05/17 [ History Confirmed 10/05/17] Ketorolac 0.5% OPHTH (NF) 1 drop RIGHT EYE BID 10/05/17 [History Confirmed 10/05] L.acidoph,Paracasei, B.lactis [Probiotic] 1 cap PO DAILY 10/05/17 [History Confirmed 10/05/17] LORazepam TAB(*) [Ativan 0.5 MG TAB (*)] 0.5 mg PO BEDTIME PRN 10/05/17 [ History Confirmed 10/05/17] Levalbuterol HCl 0.31 mg INH Q6HR 10/05/17 [History Confirmed 10/05/17] Levothyroxine TAB* [Synthroid TAB*] 88 mcg PO DAILY 10/05/17 [History Confirmed 10/05/17] Mirabegron (NF) [Myrbetriq (NF)] 50 mg PO DAILY 10/05/17 [History Confirmed 03/24] Olaparib [Lynparza] 150 mg PO BID 10/05/17 [History Confirmed 10/05/17] Polyethylene Glycol 3350* [Miralax*] 17 gm PO DAILY 10/05/17 [History Confirmed 10/05/17] Prochlorperazine TAB* [Compazine Tab*] 10 mg PO Q6H PRN 10/05/17 [History Confirmed 10/05/17] Rivaroxaban TAB(*) [Xarelto 20 mg] 20 mg PO DAILY 10/05/17 [History Confirmed ] traMADol TAB* [Ultram*] 50 mg PO Q6HR PRN 10/05/17 [History Confirmed 10/05/17] PMH/Surg Hx/FS Hx/Imm Hx Endocrine/Hematology History: Reports: Hx Thyroid Disease Denies: Hx Diabetes, Hx Systemic Lupus Erythematosus Cardiovascular History: Reports: Hx Angina, Hx Hypertension, 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, Other Cardiovascular Problems/Disorders - a- fib, aneurysm thoracic aorta Denies: Hx Congestive Heart Failure, Hx Pacemaker/ICD Respiratory History: Reports: Hx Asthma, Hx Pulmonary Embolism - 2003, Other Respiratory Problems/Disorders - reports in remission - sarcoidosis GI History: Reports: Other GI Disorders - part of liver removed 2014 Denies: Hx Gall Bladder Disease - gallbladder removed, Hx Ulcer History: Reports: Hx Kidney Infection - bilateral stents- had one a couple of weeks ago, Hx Kidney Stones - history of, Hx Renal Disease, Other Problems /Disorders - scar tissue from surgery, has stents currently, freq UTI's Denies: Hx Dialysis Musculoskeletal History: Reports: Hx Arthritis - osteoarthritis, Hx Osteoporosis , Other Musculoskeletal History - osteoarthritis Denies: Hx Rheumatoid Arthritis Sensory History: Reports: Hx Cataracts - both, Hx Contacts or Glasses - glasses Denies: Hx Hearing Aid Opthamlomology History: Reports: Hx Cataracts - both, Hx Contacts or Glasses - glasses EENT History: Denies: Hx Deafness Neurological History: Reports: Other Neuro Impairments/Disorders - Neuropathy- both hands, fingers and bottom of feet-chemotherapy Psychiatric History: Reports: Hx Anxiety - prn med Denies: Hx Panic Disorder - Cancer History Cancer Type, Location and Year: OVARIAN CA Hx Chemotherapy: Yes - 2014 Hx Radiation Therapy: No - Surgical History Surgery Procedure, Year, and Place: partial hysterectomy,tonsilectomy, cholecystectomy, biopsy chest for sarcoidosis; bladder suspension. 06/2014 [facility] REMOVED 2 OVARY-TUMORS ATTACHED TO OVARY-PART OF INTESTINE-PART OF BLADDER-PART OF LIVER-PART OF RIGHT KIDNEY-STOMACH LINING(DEBULKING); 2 CHEMO PORTS-THEN REMOVED; LEFT ELBOW REPAIR, PLANTAR FASCIOTOMY, APPENDECTOMY Hx Anesthesia Reactions: No - Immunization History Date of Tetanus Vaccine: unk Date of Influenza Vaccine: 2016 Infectious Disease History: No Infectious Disease History: Denies: Hx Human Immunodeficiency Virus (HIV), History Other Infectious Disease, Traveled Outside the [place] in Last 30 Days - Family History Known Family History: Negative: Respiratory Disease, Seizure Disorder - Social History Occupation: Retired Lives: Alone Alcohol Use: None Substance Use Type: Reports: None Hx Tobacco Use: No Smoking Status (MU): Never Smoked Tobacco Review of Systems Negative: Fever Positive: no symptoms reported Positive: Anxious, Depressed All Other Systems Reviewed And Are Negative: Yes Physical Exam - Summary Physical Exam Summary: Appearance: Well appearing, no pain distress, port in right chest Skin: warm, dry, port in right chest, sarcoidosis scar on chest, pallor, mild pallor to mucous membranes, conjunctiva Head/face: normal Eyes: EOMI, GUSTAVO ENT: normal Neck: supple, non-tender Respiratory: CTA, breath sounds present Cardiovascular: RRR, pulses symmetrical Abdomen: non-tender, soft Bowel Sounds: present Musculoskeletal: normal, strength/ROM intact Neuro: normal, sensory motor intact, A&Ox3 Psych: Tearful, depressed, no SI Triage Information Reviewed: Yes Vital Signs On Initial Exam: Initial Vitals Temp Pulse Resp BP Pulse Ox 98.2 F 75 18 111/58 97 10/05/17 12:20 10/05/17 12:20 10/05/17 12:20 10/05/17 12:20 10/05/17 12:20 Vital Signs Reviewed: Yes Diagnostics - Vital Signs Vital Signs Temp Pulse Resp BP Pulse Ox 10/05/17 12:20 98.2 F 75 18 111/58 97 - Laboratory Lab Statement: Any lab studies that have been ordered have been reviewed, and results considered in the medical decision making process. - EKG 1311 Cardiac Rate: NL - 69 EKG Rhythm: Sinus Rhythm ST Segment: Normal Ectopy: None EKG Interpretation: nl axis Re-Evaluation - Re-Evaluation First Eval Re-Evaluation Time: 16:00 Change: Improved Comment: Pt feels better, amenable to discharge Course/Dx - Course Course Of Treatment: She received her blood transfusion due to dizziness associated with her chronic anemia. In the interim she was medically cleared otherwise and received her mental health evaluation. She was cleared for discharge by crisis and the psychiatrist. He is given outpatient referral. She was feeling much better and is discharging good condition. - Differential Dx/Clinical Impression Provider Diagnosis: Chronic anemia, Lightheadedness, Adjustment disorder with disturbance of emotion, Primary cancer of ovary with widespread metastatic disease - Critical Care Time Critical Care Time: 30-74 min - Critical care TIME is exclusive of separately billable procedures Discharge - Sign-Out/Discharge Documenting (check all that apply): Patient Departure - discharge - Discharge Plan Condition: Improved Disposition: HOME Patient Education Materials: and Dying (DC) Referrals: Shannon White MD [Primary Care Provider] - - Billing Disposition and Condition Condition: IMPROVED Disposition: Home
--- OUTSIDE RECORDS SUMMARY | 2017-10-05 13:11 | XMS REPORT ---
:1945 External Reference #:[id number] Author Organization Damian Park M.D., [facility] Address [address] [place] [address] Phone [phone] Care Team Providers Name Role Phone Shannon White MD Care Team Information Workers Compensation Claims Specialist Unavailable Shannon White MD Primary Care Physician Unavailable Payers Type Date Identification Numbers Payment Provider Subscriber Health Maintenance Policy Number: [id number] [employer] Megan Ramos Organization (HMO) PayID: [id number] [address] [place] [address] Problems Description No Information Family History Date Family Member(s) Problem(s) Comments Father Noncontributory Mother Noncontributory Social History Type Date Description Comments ETOH Use Denies alcohol use Smoking Patient has never smoked Allergies, Adverse Reactions, Alerts Date Description Reaction Status Severity Comments 11/09/2016 Bactrim rash active 05/21/2017 Beclomethasone active 05/21/2017 Cefaclor active 05/21/2017 Celebrex active 05/21/2017 Taxol active Medications Medication Date Status Form Strength Qnty SIG Indications Ordering Provider Colace 01/17 Active Capsules 100mg 60cap take 1 s capsule by MD Shannon mouth twice a day (stool softener) Miralax 01/17 Active Powder 3350NF 510un 1 capful a its day as MD Shannon needed Carvedilol 01/11 Active Tablets 6.25mg 1 by mouth twice a MD Shannon day Ventolin HFA 10/06 Active Aerosol 108(90Bas 2 puffs Unknown e) every 4 mcg/Act hours as needed Carvedilol 00 Active Tablets 12.5mg Hale, / MD Nuvia Potassium Chloride 00 Active Tablets ER 20Meq Unknown Delia ER / Levothyroxine Active Tablets 88mcg Christopher, MD Shannon Xarelto Active Tablets 20mg Christopher, MD Shannon Prednisone Active Tablets 5mg Unknown / Ciprofloxacin HCL Active Tablets 500mg Unknown / Fluconazole Active Tablets 150mg Unknown Breo Ellipta Active Aerosol 200-25mcg Unknown /0000 /Inh Levalbuterol HCL Active Nebulizer 0.31mg/3M Use 1 Vial Unknown L as Directed Via Nebulizer Every 6 Hours as Needed Prednisone Active Tablets 10mg Unknown Methylprednisolone Active TBPK 4mg Unknown Pulmicort Active Aerosol 180mcg/Ac Unknown Flexhaler t Montelukast Sodium Active Tablets 10mg , MD Shannon Levofloxacin Active Tablets 500mg Unknown Azithromycin Active Tablets 250mg Take Two Unknown Tablets By Mouth AT Once On The First Day Then Take One Daily Dronabinol Active Capsules 5mg Unknown Gabapentin Active Capsules 100mg Take One Unknown Capsule By Mouth Three Times A Day as Needed For Pain Itching Prochlorperazine Active Tablets 10mg Take One Unknown Maleate 0000 Tablet By Mouth Every 6 Hours Tramadol HCL Active Tablets 50mg Take One Unknown Tablet By Mouth Every 6 Hours Maximum Daily Dose 4 Lorazepam Active Tablets 0.5mg Take One Unknown 0000 Tablet By Mouth AT Bedtime as Needed Maximum Daily Dose 1 Arnuity Ellipta Active Aerosol 200mcg/Ac Inhale One t puff By Mouth Every Day Vitamin D3 Active Capsules 2000Unit 1 qd Unknown Lynparza Active Tablets 150mg 1 po bid Unknown Potassium Chloride Active Tablets ER 20Meq 1 by mouth Unknown ER every day Hydrocodone-Acetam Active Tablets 5-325mg 1 by mouth Unknown inophen four times a day as needed pain Vital Signs Date Vital Result Comment 08/10/2017 Intraocular Pressure Right Eye 14 mmHg Intraocular Pressure Left Eye 15 mmHg 08/03/2017 Intraocular Pressure Right Eye 15 mmHg 07/06/2017 Intraocular Pressure Right Eye 15 mmHg Intraocular Pressure Left Eye 15 mmHg 05/21/2017 Intraocular Pressure Right Eye 14 mmHg Intraocular Pressure Left Eye 15 mmHg Results Description No Information Procedures Date CPT Code Description Status 08/09/2017 96549 Extracapsular Cataract Extraction W/Intraocular Lens Completed 08/02/2017 98179 Extracapsular Cataract Extraction W/Intraocular Lens Completed 07/06/2017 61336 Ophthalmic Biometry By Partial Coherence Interferometry Completed W/Intra 07/06/2017 62728 Eye Exam Est Intermediate Completed 05/21/2017 96671 Ophthalmoscopy Initial Completed 05/21/2017 35249 Eye Exam New Intermediate Completed Plan of Care Future Appointment(s):03/20/2018 1:30 pm - Leobardo Baxter [id number] - Leobardo Baxter ODH53.001 Unspecified amblyopia, right eyeZ96.1 Presence of intraocular lensH52.4 PresbyopiaFollow up:6 mos full, sooner PRN
[2017-10-05 15:20] LABS: Urine Appearance Cloudy; Urine Blood 3+ (Negative); Urine Color Yellow; Urine Ketones Negative (Negative); Urine Protein 2+(100 mg/dL) (Negative); Urine Red Blood Cell 3+(>10/hpf) (Absent); Urine Specific Gravity 1.014 (1.010-1.030); Urine Urobilinogen Negative (Negative); Urine White Blood Cell 3+(>20/hpf) (Absent)
[2017-10-05] MEDS ORDERED: Acetaminophen TAB* 325 MG ONE (15:21)
[2017-10-05] MEDS ORDERED: Acetaminophen TAB* 325 MG PO ONE (15:29)
[2017-10-05 17:46] VITALS: BP 106/67
== END 2017-10-05 17:45 | disposition home or self-care (01) ==
LOC: ED 12:15
DX: D64.9 Anemia, unspecified (principal); C56.9 Malignant neoplasm of unspecified ovary; C79.9 Secondary malignant neoplasm of unspecified site; F32.9 Major depressive disorder, single episode, unspecified; R42 Dizziness and giddiness; F43.29 Adjustment disorder with other symptoms; E07.9 Disorder of thyroid, unspecified; Z79.899 Other long term (current) drug therapy; Z86.711 Personal history of pulmonary embolism; Z88.3 Allergy status to other anti-infective agents; Z88.2 Allergy status to sulfonamides
CPT/HCPCS: 36415; 80307; 80320; 80329; 81003; 81015; 84443; 86850; 86900; 86901; 86922; 87086; 93005; 99285; A9270-GY; G0480; P9040

== ENCOUNTER 2019-06-22 15:30 | Inpatient (IN) | payer OTHER, MEDICARE ==
[2019-06-22] MEDS ORDERED: Acetaminophen TAB* 325 MG PO PRN (16:30)
[2019-06-22] MEDS ORDERED: LORazepam TAB(*) 0.5 MG PO PRN (16:49)
[2019-06-22] MEDS ORDERED: LORazepam TAB(*) 0.5 MG PO SCH (18:00)
[2019-06-22] MEDS: Docusate CAP* 100 MG PO SCH (20:18)
[2019-06-22] MEDS: Carvedilol TAB* 6.25 MG PO SCH (20:18)
[2019-06-23] MEDS: Levothyroxine TAB* 88 MCG TAB PO SCH (05:52)
[2019-06-23] MEDS: Docusate CAP* 100 MG PO SCH ×2 (09:00→19:36)
[2019-06-23] MEDS: Carvedilol TAB* 6.25 MG PO SCH ×2 (09:00→19:36)
[2019-06-23] MEDS: Pantoprazole TAB * 40 MG TAB PO SCH (09:00)
--- NOTE | 2019-06-23 11:59 | PN ---
Progress Note - Progress Note Date of Service: 06/23/19 SOAP: Subjective: [Megan reports she is doing ok. Mild dyspnea. Pain well controlled. Appears she remains afebrile since reaching the hospital. Her 's ashes were delivered to her and she is much happier about this. COVID testing still pending.] Objective: [ Vital Signs: Temp Pulse Resp BP Pulse Ox 97.9 F 88 14 104/46 100 06/23/19 09:33 06/23/19 09:33 06/23/19 09:33 06/23/19 09:33 06/23/19 09:33 Acetaminophen (Tylenol Tab*) 650 mg PO Q6H PRN PRN Reason: PAIN - MILD Bisacodyl (Dulcolax Supp*) 10 mg SC DAILY PRN PRN Reason: CONSTIPATION Carvedilol (Coreg Tab*) 6.25 mg PO BID [facility] Last Admin: 06/22/19 20:18 Dose: 6.25 mg Docusate Sodium (Colace Cap*) 200 mg PO BID [facility] Last Admin: 06/22/19 20:18 Dose: 200 mg Levothyroxine Sodium (Synthroid Tab*) 88 mcg PO DAILY@0600 [facility] Last Admin: 06/23/19 05:52 Dose: 88 mcg Lorazepam (Ativan Tab(*)) 0.5 mg PO Q3HR PRN PRN Reason: anxiety/agitation Morphine Sulfate (Morphine Oral Concentrate*) 10 mg PO Q2H PRN PRN Reason: Moderate Pain Pantoprazole Sodium (Protonix Tab*) 40 mg PO DAILY [facility]; Protocol Prochlorperazine (Compazine 10 Mg Tab) 10 mg PO Q6H PRN PRN Reason: NAUSEA Exam: Gen: chronically ill appearing 73 yo female in NAD Resp: supp O2 in place, easy and even respirations Assessment: [This is a 73 yo female with metastatic ovarian CA who has been receiving home hospice services but unable to care for herself at home any longer. [facility] by she was febrile with mild respiratory symptoms. She has now been admitted to the hospital for appropriate supportive care while her COVID 19 testing is pending. Her respiratory symptoms continue to be very mild.] Plan: [- cont comfort measures only - COVID 19 testing pending - DNR/DNI [facility] negative COVID [facility] testing]
[2019-06-23] MEDS: Morphine ORAL CONCENTRATE* 5 MG/0.25 ML ORAL.SYRIN PO PRN (22:32)
[2019-06-24] MEDS: Levothyroxine TAB* 88 MCG TAB PO SCH (05:32)
[2019-06-24] MEDS: Pantoprazole TAB * 40 MG TAB PO SCH (08:11)
[2019-06-24] MEDS: Carvedilol TAB* 6.25 MG PO SCH ×2 (09:36→19:37)
[2019-06-24] MEDS: Docusate CAP* 100 MG PO SCH ×2 (09:36→19:13)
--- NOTE | 2019-06-24 12:48 | PN ---
Progress Note - Progress Note Date of Service: 06/24/19 SOAP: Subjective: [Feeling ok. Pain well controlled. Eating very little per her desire. Remains afebrile. ] Objective: [ Vital Signs: Temp Pulse Resp BP Pulse Ox 97.0 F 84 16 96/40 100 06/24/19 08:09 06/24/19 08:09 06/24/19 08:09 06/24/19 08:09 06/24/19 08:09 Acetaminophen (Tylenol Tab*) 650 mg PO Q6H PRN PRN Reason: PAIN - MILD Bisacodyl (Dulcolax Supp*) 10 mg MD DAILY PRN PRN Reason: CONSTIPATION Carvedilol (Coreg Tab*) 6.25 mg PO BID [facility] Last Admin: 06/24/19 09:36 Dose: Not Given Docusate Sodium (Colace Cap*) 200 mg PO BID [facility] Last Admin: 06/24/19 09:36 Dose: Not Given Levothyroxine Sodium (Synthroid Tab*) 88 mcg PO DAILY@0600 [facility] Last Admin: 06/24/19 05:32 Dose: 88 mcg Lorazepam (Ativan Tab(*)) 0.5 mg PO Q3HR PRN PRN Reason: anxiety/agitation Morphine Sulfate (Morphine Oral Concentrate*) 10 mg PO Q2H PRN PRN Reason: Moderate Pain Last Admin: 06/23/19 22:32 Dose: 10 mg Pantoprazole Sodium (Protonix Tab*) 40 mg PO DAILY [facility]; Protocol Last Admin: 06/24/19 08:11 Dose: 40 mg Prochlorperazine (Compazine 10 Mg Tab) 10 mg PO Q6H PRN PRN Reason: NAUSEA Exam: Gen: chronically ill appearing 73 yo female in NAD Resp: supp O2 in place, easy and even respirations Assessment: This is a 73 yo female with metastatic ovarian CA who has been receiving home hospice services but unable to care for herself at home any longer. Hospice planned to move her to the [facility] residence by she was febrile with mild respiratory symptoms. She has now been admitted to the hospital for appropriate supportive care while her COVID 19 testing is pending. Her respiratory symptoms continue to be very mild. Plan: - cont comfort measures only - COVID 19 testing still pending - DNR/DNI Dispo: transfer to [facility] residence pending negative COVID 19 testing
[2019-06-25] MEDS: Levothyroxine TAB* 88 MCG TAB PO SCH (05:29)
[2019-06-25 07:39] VITALS: BP 98/42
[2019-06-25] MEDS: Carvedilol TAB* 6.25 MG PO SCH ×2 (07:50→20:12)
[2019-06-25] MEDS: Pantoprazole TAB * 40 MG TAB PO SCH (07:50)
[2019-06-25] MEDS: Docusate CAP* 100 MG PO SCH ×2 (07:50→20:12)
--- NOTE | 2019-06-25 17:19 | PN ---
Progress Note - Progress Note Date of Service: 06/25/19 SOAP: Subjective: []Seen and examined this AM. Feels fine. No complaints to this procedure writer. Anxious to get out of the hospital. Medications: Acetaminophen (Tylenol Tab*) 650 mg PO Q6H PRN PRN Reason: PAIN - MILD Bisacodyl (Dulcolax Supp*) 10 mg ME DAILY PRN PRN Reason: CONSTIPATION Carvedilol (Coreg Tab*) 6.25 mg PO BID [facility] Last Admin: 06/25/19 07:50 Dose: 6.25 mg Docusate Sodium (Colace Cap*) 200 mg PO BID [facility] Last Admin: 06/25/19 07:50 Dose: Not Given Levothyroxine Sodium (Synthroid Tab*) 88 mcg PO DAILY@0600 [facility] Last Admin: 06/25/19 05:29 Dose: 88 mcg Lorazepam (Ativan Tab(*)) 0.5 mg PO Q3HR PRN PRN Reason: anxiety/agitation Morphine Sulfate (Morphine Oral Concentrate*) 10 mg PO Q2H PRN PRN Reason: Moderate Pain Last Admin: 06/23/19 22:32 Dose: 10 mg Pantoprazole Sodium (Protonix Tab*) 40 mg PO DAILY [facility]; Protocol Last Admin: 06/25/19 07:50 Dose: 40 mg Prochlorperazine (Compazine 10 Mg Tab) 10 mg PO Q6H PRN PRN Reason: NAUSEA Objective: [] Vital Signs Temp Pulse Resp BP Pulse Ox 96.9 F 82 16 98/42 100 06/25/19 07:18 06/25/19 07:18 06/25/19 07:25 06/25/19 07:18 06/25/19 07:18 A&O, no distress HRR LS clear Assessment: []This is a 73 yo female with metastatic ovarian CA who has been receiving home hospice services however she has limited support and recently became unable to care for herself, therefore plan to transition to the hospice residence. This was however delayed by concern for respiratory symptoms and need to rule out COVID-19. Unfortunately this is still pending, however as soon as it is negative she is cleared for d/c to the residence. Plan: []- cont. comfort measures only - COVID 19 testing still pending - DNR/DNI Dispo: [facility] negative COVID 19 testing
[2019-06-25] MEDS: Morphine ORAL CONCENTRATE* 5 MG/0.25 ML ORAL.SYRIN PO PRN (23:28)
[2019-06-26] MEDS: Levothyroxine TAB* 88 MCG TAB PO SCH (05:39)
[2019-06-26] MEDS: Docusate CAP* 100 MG PO SCH (08:17)
[2019-06-26] MEDS: Pantoprazole TAB * 40 MG TAB PO SCH (08:18)
[2019-06-26] MEDS: Carvedilol TAB* 6.25 MG PO SCH (08:18)
--- NOTE | 2019-06-26 09:45 | DS ---
Admission Date: 06/22/19 Discharge Date: 06/25/19 Discharge Diagnosis: 1. Ovarian Cancer: end stage, hospice 2. Fever: spontaneously resolved, COVID19 negative Discharge Medications: Carvedilol TAB* [Coreg TAB*] 6.25 mg PO BID 10/31/16 [History Confirmed 06/22/19 ] Docusate CAP* [Colace Cap*] 200 mg PO BID 10/05/17 [History Confirmed 06/22/19] LORazepam TAB(*) [Ativan 0.5 MG TAB (*)] 0.5 mg PO Q3HR MDD 4 mg 10/05/17 [ History Confirmed 06/22/19] Levothyroxine TAB* [Synthroid 88 MCG TAB*] 88 mcg PO DAILY 10/05/17 [History Confirmed 06/22/19] Prochlorperazine 10 mg TAB [Compazine 10 mg TAB] 10 mg PO Q6H PRN 10/05/17 [ History Confirmed 06/22/19] Bisacodyl 10 mg SUPP [Dulcolax Supp*] 10 mg MA DAILY PRN 06/22/19 [History Confirmed 06/22/19] Esomeprazole Magnesium [Nexium 24Hr] 20 mg PO DAILY 06/22/19 [History Confirmed 06/22/19] Morphine ORAL CONCENTRATE* 5 - 10 mg PO Q2H PRN 06/22/19 [History Confirmed ] Acetaminophen TAB* [Tylenol TAB*] 650 mg PO Q6H PRN tab 06/25/19 [Rx] Disposition: Hospice Residence Condition: Stable Diet: As tolerated, comfort diet Activity: Turn and position for comfort, fall precautions Hospital Course: Please see admission note for full h&P, however, briefly, Mrs. Megan Ramos is well known to our service due to her unfortunate diagnosis of advanced ovarian cancer. Megan was initially diagnosed in the spring at which time she had optimal debulking followed by adjuvant chemotherapy. She remained RUBY until January of 2017 at which time she presented with new hydronephrosis and was found to have advanced disease. She initiated therapy completing in June of 2017 followed by maintenance Olaparib, however she progressed in the fall and has been on hospice since. Megan has declined recently and is no longer able to live independently (as she only has minimal assistance from a neighbor), therefore plan was to transition to the hospice residence. Upon assessment for admission to the residence she screened positive for a low-grade temperature and recent respiratory symptoms, therefore evaluation for possible COVID-19 was warranted. She was admitted directly to the hospital on 06/22/19 for COVID testing and symptom management. Megan has been minimally symptomatic since admission. COVID-19 testing was eventually reported as negative (low pre- test probability). No further follow-up indicated. Ambreen Del Rosario
== END 2019-06-26 13:00 | disposition hospice, inpatient (51) | DRG 722 ==
LOC: MED 15:30
PROVIDERS: ADMIT Internal Medicine Hematology & Oncology; ATTEND Internal Medicine Hematology & Oncology
DX: R50.9 Fever, unspecified (principal); C56.9 Malignant neoplasm of unspecified ovary; D86.9 Sarcoidosis, unspecified; E03.9 Hypothyroidism, unspecified; I48.91 Unspecified atrial fibrillation; R05 Cough; R06.02 Shortness of breath; Z66 Do not resuscitate; I70.90 Unspecified atherosclerosis; Z88.8 Allergy status to other drugs, medicaments and biological substances; Z79.899 Other long term (current) drug therapy
CPT/HCPCS: 87635; 99222; 99232; 99239; A9270-GY; Q0164